=== PATIENT | female | born 2000 | race Hispanic/Latino ===

== ENCOUNTER 2020-10-27 13:02 | Emergency (ER) | payer OTHER, SELFPAY ==
[2020-10-27 15:26] LABS: Absolute Lymphocytes (CBC) 1.6 K/uL (0.7-4.9); Basophils % 0.5 % (0-1.3); Hematocrit 36.2 % (36.0-45.0); MPV 9.2 fL (7.6-11.3); RBC Red Blood Cell Count 4.64 M/uL (3.86-4.86)
[2020-10-27 15:47] LABS: Urine Blood 3+ (NEG); Urine Glucose NEGATIVE (NEG); Urine Protein NEGATIVE (NEG); Urine pH 7.5 (5.0-7.0)
[2020-10-27 15:52] LABS: BUN Blood Urea Nitrogen 6 mg/dL (7-18); Bicarbonate 28 mmol/L (21-32); Glucose Level 84 mg/dL (74-106); HCG, Quantitative 3707 mIU/mL (1-3); Potassium 3.7 mmol/L (3.5-5.1); Sodium Level 139 mmol/L (136-145)
--- NOTE | 2020-10-27 16:38 | ER ---
Nurse's Notes [facility] Name: Carmelina Hopson Age: 20 yrs Sex: Female : 2000 Arrival Date: 10/27/2020 Time: 13:08 Bed 28 Private MD: Diagnosis: Threatened Presentation: 10/27 13:58 Chief complaint: Patient states: is approx 6 weeks LMP=10-26-20, had iw verification of but has not had her appt with her OB, started having vaginal bleeding when she wiped today, denies cramping or pain , . Coronavirus screen: At this time, the client does not indicate any symptoms associated with coronavirus-19. Ebola Screen: Patient negative for fever greater than or equal to 101.5 degrees Fahrenheit, and additional compatible Ebola Virus Disease symptoms Patient denies exposure to infectious person. Patient denies travel to an Ebola-affected area in the 21 days before illness onset. No symptoms or risks identified at this time. Initial Sepsis Screen: Does the patient meet any 2 criteria? No. Patient's initial sepsis screen is negative. Does the patient have a suspected source of infection? No. Patient's initial sepsis screen is negative. Risk Assessment: Do you want to hurt yourself or someone else? Patient reports no desire to harm self or others. Onset of symptoms was October 27, 2020. 13:58 Method Of Arrival: Ambulatory 13:58 Acuity: JUSTIN 3 iw HRIS MANAGER: 14:00 LMP 09/12/2020 iw 15:00 2, Full Term 1, Living 1, LMP 09/12/2020, Verified, EDC 06/19/2021, cp Gestational age from LMP: 6 weeks 3 days Historical: - Allergies: 14:00 No Known Allergies; iw - Home Meds: 14:00 None [Active]; iw - PMHx: 14:00 None; iw - PSHx: 14:00 None; iw - Immunization history:: Adult Immunizations unknown. - Social history:: Smoking status: Patient denies any tobacco usage or history of. Screenin:00 Abuse screen: Denies threats or abuse. Denies injuries from another. Nutritional jl7 screening: No deficits noted. Tuberculosis screening: No symptoms or risk factors identified. Fall Risk IV access (20 points). Total Wyman Fall Scale indicates No Risk (0-24 pts). Assessment: 15:00 General: Appears in no apparent distress. uncomfortable, Behavior is calm, cooperative, jl7 appropriate for age. Pain: Denies pain. Neuro: Level of Consciousness is awake, alert, obeys commands, Oriented to person, place, time, situation. Cardiovascular: Patient's skin is warm and dry. Respiratory: Airway is patent Respiratory effort is even, unlabored, Respiratory pattern is regular, symmetrical. GI: No signs and/or symptoms were reported involving the gastrointestinal system. : Urine is clear, Reports vaginal bleeding that is spotty. Derm: Skin is pink, warm \T\ dry. 16:00 Reassessment: Patient appears in no apparent distress at this time. No changes from jl7 previously documented assessment. Patient and/or family updated on plan of care and expected duration. Pain level reassessed. Patient is alert, oriented x 3, equal unlabored respirations, skin warm/dry/pink. Vital Signs: 13:58 BP 134 / 85; Pulse 79; Resp 16; Temp 98.0; Pulse Ox 100% on R/A; Weight 48.53 kg; iw Height 4 ft. 8 in. (142.24 cm); 13:58 Body Mass Index 23.99 (48.53 kg, 142.24 cm) iw ED Course: 13:08 Patient arrived in ED. rg4 14:00 Triage completed. iw 14:42 Jose R Gross PA is PHCP. cp 14:42 Karson Collins MD is Attending Physician. cp 15:00 IV discontinued, intact, bleeding controlled, No redness/swelling at site. Pressure jl7 dressing applied. 15:00 Patient has correct armband on for positive identification. Placed in gown. Bed in low jl7 position. Call light in reach. Side rails up X 1. Pulse ox on. NIBP on. Warm blanket given. 15:10 Initial lab(s) drawn, by me, sent to lab. Inserted saline lock: 20 gauge in left kj1 antecubital area, using aseptic technique. Blood collected. 15:20 Landy Huff, DANIELA is Primary Nurse. jl7 16:17 US Transvaginal Ob In Process Unspecified. EDMS 16:51 No provider procedures requiring assistance completed. jl7 16:51 Arm band placed on right wrist. jl7 Administered Medications: No medications were administered Outcome: 16:38 Discharge ordered by . tray 16:51 Discharged to home ambulatory. [email or web address] 16:51 Condition: stable 16:51 Discharge instructions given to patient, Instructed on discharge instructions, follow up and referral plans. Demonstrated understanding of instructions, follow-up care. 16:52 Patient left the ED. jl7 Signatures: Dispatcher [employer] EDLuisa Stewart RN RN iw Jose R Gross PA PA Maddy Barahona rg4 Landy Huff RN RN jl7 Analilia Quezada kj1
--- NOTE | 2020-10-27 16:38 | EDPHYS ---
Physician Documentation [facility] Name: Carmelina Hopson Age: 20 yrs Sex: Female : 2000 Arrival Date: 10/27/2020 Time: 13:08 Bed 28 Private MD: ED Physician Karson Collins HPI: 10/27 15:00 This 20 yrs old Female presents to ER via Ambulatory with complaints of cp Vaginal Bleeding. 15:00 The patient presents to the emergency department with vaginal bleeding, that is light, cp with no clots. 15:00 course: care: at a clinic, Leakage of Fluid: none appreciated, cp Ultrasound: the patient has not had an ultrasound. Previous pregnancies: in previous pregnancies patient has had no complications. Associated signs and symptoms: Pertinent negatives: abdominal pain, dysuria, fever. VP CLIENT SERVICES: 14:00 LMP 09/12/2020 iw 15:00 2, Full Term 1, Living 1, LMP 09/12/2020, Verified, EDC 06/19/2021, cp Gestational age from LMP: 6 weeks 3 days Historical: - Allergies: 14:00 No Known Allergies; iw - Home Meds: 14:00 None [Active]; iw - PMHx: 14:00 None; iw - PSHx: 14:00 None; iw - Immunization history:: Adult Immunizations unknown. - Social history:: Smoking status: Patient denies any tobacco usage or history of. ROS: 15:05 Eyes: Negative for injury, pain, redness, and discharge. cp 15:05 Constitutional: Negative for body aches, chills, fever. 15:05 Cardiovascular: Negative for chest pain. 15:05 Respiratory: Negative for cough, shortness of breath. 15:05 Abdomen/GI: Negative for abdominal pain, nausea, vomiting, and diarrhea. 15:05 : Positive for vaginal bleeding, Negative for urinary symptoms. 15:05 Neuro: Negative for altered mental status, weakness. 15:05 All other systems are negative. Exam: 15:10 Constitutional: The patient appears in no acute distress, alert, awake, non-toxic, well cp developed, well nourished. 15:10 Head/Face: Normocephalic, atraumatic. cp 15:10 Eyes: Periorbital structures: appear normal, Conjunctiva: normal, no exudate, no injection, Lids and lashes: appear normal, bilaterally. 15:10 ENT: External ear(s): are unremarkable, Nose: is normal, Posterior pharynx: Airway: no evidence of obstruction, patent. 15:10 Chest/axilla: Inspection: normal. 15:10 Cardiovascular: Rate: normal, Rhythm: regular. 15:10 Respiratory: the patient does not display signs of respiratory distress, Respirations: normal, no use of accessory muscles, no retractions, labored breathing, is not present, Breath sounds: are clear throughout, no decreased breath sounds. 15:10 Abdomen/GI: Inspection: abdomen appears normal, Palpation: abdomen is soft and non-tender, in all quadrants. 15:10 Back: pain, is absent, ROM is normal. Vital Signs: 13:58 BP 134 / 85; Pulse 79; Resp 16; Temp 98.0; Pulse Ox 100% on R/A; Weight 48.53 kg; iw Height 4 ft. 8 in. (142.24 cm); 13:58 Body Mass Index 23.99 (48.53 kg, 142.24 cm) iw MDM: 14:45 Patient medically screened. 16:37 Data reviewed: vital signs, nurses notes, lab test result(s), radiologic studies, cp ultrasound, and as a result, I will discharge patient. 10/27 14:43 Order name: Abo/rh Typing; Complete Time: 16:00 10/27 14:43 Order name: Basic Metabolic Panel; Complete Time: 16:00 10/27 16:00 Interpretation: Normal except: BUN 6. 10/27 14:43 Order name: CBC with Diff; Complete Time: 16:00 10/27 16:01 Interpretation: Normal except: HGB 11.7; MCV 78.1; MCH 25.2; RDW 15.6. 10/27 14:43 Order name: HCG-Quantitative; Complete Time: 16:00 10/27 16:01 Interpretation: Abnormal: HCGQ 3707. 10/27 14:56 Order name: Urine Dipstick--Ancillary (enter results); Complete Time: 16:00 10/27 16:37 Interpretation: Normal except: UBLD 3+; UPH 7.5. 10/27 14:58 Order name: US Transvaginal Ob; Complete Time: 17:09 cp 10/27 17:10 Interpretation: Report reviewed. cp 10/27 14:43 Order name: IV Saline Lock; Complete Time: 15:12 cp 10/27 14:43 Order name: Labs collected and sent; Complete Time: 15:13 cp 10/27 14:43 Order name: NPO; Complete Time: 15:13 cp 10/27 14:43 Order name: Urine Dipstick-Ancillary (obtain specimen); Complete Time: 14:55 cp 10/27 14:43 Order name: Urine Test (obtain specimen); Complete Time: 14:55 cp Administered Medications: No medications were administered Disposition: 10/28 07:11 Co-signature as Attending Physician, Karson Collins MD I agree with the assessment and kdr plan of care. Disposition: 10/27/20 16:38 Discharged to Home. Impression: Threatened . - Condition is Stable. - Discharge Instructions: Threatened Miscarriage, Vaginal Bleeding During , First Trimester, Pelvic Rest. - Medication Reconciliation Form, Thank You Letter, Antibiotic Education, Prescription Opioid Use form. - Follow up: Private Physician; When: 1 week; Reason: Recheck today's complaints. - Problem is new. - Symptoms have improved. Signatures: Dispatcher [employer] EDMS Karson Collins MD MD kdr Luisa Ann RN RN Jose R Recinos PA PA cp Landy Huff RN RN jl7 Corrections: (The following items were deleted from the chart) 10/27 16:52 16:38 10/27/2020 16:38 Discharged to Home. Impression: Threatened . Condition jl7 is Stable. Forms are Medication Reconciliation Form, Thank You Letter, Antibiotic Education, Prescription Opioid Use. Follow up: Private Physician; When: 1 week; Reason: Recheck today's complaints. Problem is new. Symptoms have improved. cp 17:11 17:10 This 20 yrs old Female presents to ER via Ambulatory with complaints of cp Vaginal Bleeding. cp 17:12 15:00 2, Full Term 1, Living 1, LMP 08/27/2020, Verified, EDC cp 06/03/2021, Gestational age from LMP: 8 weeks 5 days cp
--- NOTE | 2020-10-27 16:41 | RAD REPORT ---
EXAM DESCRIPTION: US - Transvaginal OB - 10/27/2020 4:17 pm CLINICAL HISTORY: VAGINAL BLEEDING COMPARISON: No comparisons FINDINGS: A single gestational sac is seen within the uterus. The shape of the sac is within normal limits for gestational age. Within the sac is a single pole with crown-rump length of 3 mm, cor relating to estimated gestational age of 6 weeks 1 day. Estimated date of delivery is 06/21/2021. Heart rate is 146 BPM. The placenta is not yet developed due to early gestational age. The maternal adnexa and ovaries are within normal limits. Normal Doppler blood flow was demonstrated to both ovaries. IMPRESSION: Single live early intrauterine gestation with estimated gestational age of 6 weeks 1 day , DIAMOND 06/21/2021. No unusual or unexpected finding.
[2020-11-01 19:31] VITALS: BP 134/85; TEMP 98; O2SAT 100
== END 2020-10-27 16:52 | disposition home or self-care (01) ==
LOC: ER 13:02
DX: O20.0 Threatened abortion (principal); Z3A.01 Less than 8 weeks gestation of pregnancy
CPT/HCPCS: 36415; 76817; 80048; 81003; 84702; 85025; 86900; 86901; 99284